=== PATIENT | female | born 1990 | race Two or more races ===

== ENCOUNTER 2016-12-25 17:01 | Emergency (ER) | payer OTHER ==
[~2016-12-25] VITALS: Ht 149.9 cm; Wt 56.7 kg
[2016-12-25 17:25] VITALS: BP 111/60
[2016-12-25] MEDS ORDERED: NKM (17:25)
[2016-12-25] MEDS ORDERED: Bacitracin Oint UD TOPIC ONE (17:45)
[2016-12-25] MEDS ORDERED: Lidocaine 1% MPF 10mg/ml 5ml INJ ONE (17:45)
[2016-12-25] MEDS ORDERED: Tetanus/Diptheria/Pertussis Vaccine 0.5ml Syr IM ONE (17:45)
[2016-12-25] MEDS ORDERED: BACITRACIN15 GM TOPIC (18:39)
[2016-12-25] MEDS ORDERED: IBUPROFEN600 MG ORAL (18:39)
[2016-12-25 18:58] VITALS: BP 125/68
--- NOTE | 2016-12-25 21:32 | Emergency Room Report ---
History of Present Illness General Chief Complaint: Laceration Source: Patient Present Illness HPI The patient is a 26 old female presenting for right index finger laceration. She states that this occurred at work today. It is a 2/10 dull ache and does not radiate. Worse with movement. She denies any numbness or tingling. She denies other injury or symptoms. Last tetanus shot unknown Allergies: Coded Allergies: No Known Allergies (Unverified , 12/25/16) Patient History Past Medical History: see triage record Pertinent Family History: none Last Menstrual Period: 12/03/16 Now: No Reviewed Nursing Documentation: PMH: Agreed, PSxH: Agreed Nursing Documentation-PMH Past Medical History: No Stated History Review of Systems All Other Systems: negative except mentioned in HPI Physical Exam Vital Signs Date Time Temp Pulse Resp B/P (MAP) Pulse Ox O2 Delivery O2 Flow Rate FiO2 12/25/16 17:22 98.4 62 16 111/60 98 Room Air Sp02 EP Interpretation: reviewed, normal General Appearance: no apparent distress, alert, GCS 15, non-toxic Head: normocephalic, atraumatic Eyes: bilateral eye normal inspection, bilateral eye PERRL ENT: hearing grossly normal, normal pharynx, no angioedema, normal voice Musculoskeletal: back normal, gait/station normal, normal range of motion, tender - TTP over the R index finger laceration over PIPJ Neurologic: alert, oriented x3, responsive, motor strength/tone normal, sensory intact, speech normal Psychiatric: judgement/insight normal, memory normal, mood/affect normal, no suicidal/homicidal ideation Skin: no rash, normal turgor, laceration - 2cm linaer laceration over the R 2nd digit PIPJ Lymphatic: no adenopathy Procedures Splinting Splinting : Consent: Verbal Location: R index Pre-Made Type: metal Splint: finger Pre-Proc Neuro Vasc Exam: normal Post-Proc Neuro Vasc Exam: normal Patient Tolerated: Well Complications: None Laceration/Wound Repair Laceration/Wound Repair : Consent: Verbal Wound Location: upper extremity Wound's Depth, Shape: superficial, linear Wound Length (cm): 2 Wound Explored: clean Irrigated w/ Saline (ccs): 100 Betadine Prep?: Yes Anesthesia: 1% Lidocaine Volume Anesthetic (ccs): 5 Wound Debrided: minimal Wound Repaired With: sutures Suture Size/Type: 4:0, nylon Number of Sutures: 3 Layer Closure?: No Sterile Dressing Applied?: Yes Splint Applied?: Yes Type of Splint Applied: finger Sling Applied?: No Patient Tolerated: Well Complications: None Medical Decision Making PA Attestation Dr. Crenshaw is my supervising physician. Patient management was discussed with my supervising physician Diagnostic Impression: Primary Impression: Finger laceration Qualified Codes: S61.310A - Laceration without foreign body of right index finger with damage to nail, initial encounter ER Course The patient is a 26 old female presenting for right index finger laceration Ddx considered include but not limited to fracture, tendon/ligament injury, avulsion, nerve damage Physical exam reveals a 2 cm linear laceration over the right index finger PIP joint on the palmar surface. Full active range of motion. Sensation is intact. Minimal active bleeding. The wound was irrigated with normal saline and cleaned with betadine. A 27g needle was used to administer 5mL of lidocaine w.o epi for digital block. 3 sutures were placed with 5-0 nylon. The wound was well approximated and the patient tolerated the procedure well. The wound was then cleaned and bacitracin was applied. A metal finger splint was applied The patient will continue to keep the wound clean and dry and will followup with PMD and workers compensation. Suture instructions provided. ER precautions are given Last Vital Signs Date Time Temp Pulse Resp B/P (MAP) Pulse Ox O2 Delivery O2 Flow Rate FiO2 12/25/16 18:58 68 16 125/68 99 Room Air 12/25/16 17:25 98.4 Status: improved Disposition: HOME, SELF-CARE Condition: Improved Scripts Bacitracin (Bacitracin) 28.4 Gm Oint...g. 1 APPLIC TOPIC THREE TIMES A DAY, #28 GM Prov: TERZIAN,LAURIE P.A. 12/25/16 Ibuprofen* (MOTRIN*) 600 Mg Tablet 600 MG ORAL Q8H Y for For Pain, #30 TAB 0 Refills Prov: TERZIAN,LAURIE P.A. 12/25/16 Patient Instructions: Laceration Care, Adult Additional Instructions: I discussed my findings with the patient. All questions and concerns have been answered. Treatment and medication compliance have been addressed. I advised the patient that they need to follow up with PMD in 7 days for wound check and suture removal. If you are unable to see PMD, return to the ED in 7 days. Return to ED if pain remains or worsens, you notice discharge from the wound, the wound continues to bleed, the suture/s fall out, you notice a fever or chills, or for any reason. Patient is advised to keep the wound clean and apply an antibacterial ointment. Patient verbalized understanding of discharge instructions. LAURIE ROJAS Dec 25, 2016 21:32
== END 2016-12-25 18:50 | disposition home or self-care (01) ==
LOC: EMR 17:45
DX: S61.210A Laceration without foreign body of right index finger without damage to nail, initial encounter (principal); W26.0XXA Contact with knife, initial encounter; Y93.G1 Activity, food preparation and clean up; Y92.511 Restaurant or cafe as the place of occurrence of the external cause; Y99.0 Civilian activity done for income or pay; Z23 Encounter for immunization
CPT/HCPCS: 64450; 90471; 90715; 99284